=== PATIENT | male | born 1980 | race Two or more races ===

== ENCOUNTER 2021-03-14 17:13 | Outpatient (REF) | payer MEDICAID, SELFPAY ==
--- NOTE | ~2021-03-14 | XR_ITS ---
EXAMINATION: XR LUMBOSACRAL SPINE WITH OBLIQUES CLINICAL INFORMATION: Anesthesia of skin. COMPARISON: None TECHNIQUE: AP, bilateral oblique and lateral views of the lumbosacral spine are obtained. A lateral coned-down view of the lumbosacral junction is obtained. Total 5 images. FINDINGS: There is no acute fracture or subluxation. There is mild to moderate degenerative disc disease in the visualized lower thoracic levels. There is mild degenerative disc disease at L1-L2. There is moderate degenerative disc disease at L4-L5. XR/XR lumbar spine 4V min IMPRESSION: Mild degenerative disc disease at L1-L2 and moderate degenerative disc disease at L4-L5. [id number] multilevel degenerative disc disease in the visualized lower thoracic spine.
--- NOTE | ~2021-03-14 | XR_ITS ---
EXAMINATION: XR HIP, LEFT CLINICAL INFORMATION: Anesthesia of skin. COMPARISON: None TECHNIQUE: AP and frog lateral views of the left hip. FINDINGS: There is no acute fracture or malalignment. There are no apparent arthritic changes of the left hip joint. There are extensive scattered arterial calcifications. XR/XR hip LT min 2V IMPRESSION: Extensive arterial calcifications. Unremarkable left hip.
== END 2021-03-14 17:14 | disposition home or self-care (01) ==
LOC: HO.XRAY 17:13
PROVIDERS: Absent Provider Internal Medicine; PCP Internal Medicine; Visit Provider Emergency Medicine
DX: R20.0 Anesthesia of skin (principal)
CPT/HCPCS: 72110; 73502

== ENCOUNTER 2022-12-31 12:11 | Outpatient (REF) | payer MEDICARE, MEDICAID, SELFPAY | END 2022-12-31 12:12 | disposition home or self-care (01) | LOC: HO.HOSX 12:11 | PROVIDERS: Visit Provider Orthopaedic Surgery | DX: Z13.89 Encounter for screening for other disorder (principal) ==